=== PATIENT | female | born 1955 | race Caucasian/White ===

== ENCOUNTER 2017-03-27 15:46 | Emergency (ER) | payer BC ==
--- NOTE | 2017-03-27 15:54 | UC ---
Throat Pain/Nasal Lg HPI - HPI Summary HPI Summary: 61 year old female presents with trouble swallowing. She is scared to take a sip of water but feel a lump. I will send her to the ER. - History of Current Complaint Stated Complaint: HARD TIME SWALLOWING/FEELS A LUMP Time Seen by Provider: 03/27/17 15:51 Hx Obtained From: Patient Onset/Duration: Sudden Onset Pain Scale Used: 0-10 Numeric - 8 Cough: Nonproductive Associated Signs & Symptoms: Positive: Dysphagia - Allergies/Home Medications Allergies/Adverse Reactions: Allergies Allergy/AdvReac Type Severity Reaction Status Date / Time Penicillins Allergy Unknown Rash Verified 03/27/17 15:52 orange bloosom honey Allergy Unknown Hives Uncoded 03/27/17 15:52 Home Medications: Home Medications Aspirin [Aspirin 81 MG TAB] 81 mg PO DAILY 03/27/17 [History Confirmed 03/27/17] Atorvastatin* [Lipitor*] 10 mg PO DAILY 03/27/17 [History Confirmed 03/27/17] Cholecalciferol [D 1000] 03/27/17 [History] PMH/Surg Hx/FS Hx/Imm Hx Previously Healthy: Yes Review of Systems Constitutional: Negative Skin: Negative Eyes: Negative ENT: Negative Respiratory: Negative Cardiovascular: Negative Gastrointestinal: Negative Genitourinary: Negative Motor: Negative Neurovascular: Negative Musculoskeletal: Negative Neurological: Negative Psychological: Negative All Other Systems Reviewed And Are Negative: Yes Physical Exam Triage Information Reviewed: Yes Vital Signs Reviewed: Yes Eye Exam: Normal ENT Exam: Normal Dental Exam: Normal Neck exam: Normal Neck: Positive: 1 Respiratory Exam: Normal Cardiovascular Exam: Normal Abdominal Exam: Normal Musculoskeletal Exam: Normal Neurological Exam: Normal Psychological Exam: Normal Skin Exam: Normal Throat Pain/Nasal Course/Dx - Differential Dx/Diagnosis Provider Diagnoses: dysphagia. trouble swallowing Discharge - Discharge Plan Condition: Stable Disposition: OTHER Discharge Disposition Comment: patient suggested to go to the er. Patient Education Materials: Foreign Body Ingestion (ED) Referrals: Sheridan Berry [Physician [employer] [facility]] - Additional Instructions: patient suggested to go to the er for trouble swallowing.
== END 2017-03-27 16:14 ==
LOC: UCCORT 15:46
DX: R13.10 Dysphagia, unspecified (principal)
CPT/HCPCS: 99202; G0463